=== PATIENT | female | born 1945 | race Caucasian/White ===

== ENCOUNTER 2023-01-18 07:19 | Day surgery (SDC) | payer BC, MEDICAID ==
[~2023-01-18] VITALS: Ht 175.3 cm; Wt 65.2 kg
[~2023-01-18 07:19] MED LIST: ATOR40TA71 PO; LISI20TA28 PO; PANT-47 PO
[2023-01-18] MEDS ORDERED: albumin 25% 100mL bottle x 1 IV PRN (07:40)
[2023-01-18 07:45] VITALS: BP 142/76
[2023-01-18] MEDS ORDERED: ATOR40TA72 PO (07:58)
[2023-01-18] MEDS ORDERED: WARF3TAB56 PO (07:58)
[2023-01-18] MEDS ORDERED: GABA-534 PO (07:58)
[2023-01-18] MEDS ORDERED: CYAN250010 PO (07:58)
[2023-01-18] MEDS ORDERED: OLAP150T PO (07:58)
[2023-01-18] MEDS ORDERED: LIDOcaine 1% 30ml preserv. free vial SQ STA (08:03)
[2023-01-18 08:40] VITALS: BP 138/67
--- NOTE | 2023-01-18 08:57 | NUR ---
Pt DC home at 0845, procedure cancelled due to not enough fluid present to drain or sample. At 0850 Received call from lab pt INR 5.0, relayed results to Deysi DAVIS, acknowledged results and asked to notify pt of results. I phoned pt at 0855 and notified her of INR 5.o results and to follow up with MD who manages warfarin dosing. Pt verbalized understanding, and will call warfarin managing MD.
== END 2023-01-18 08:45 | disposition home or self-care (01) ==
LOC: SSTAY O 07:19
PROVIDERS: ATTEND Radiology Diagnostic Radiology
DX: J90 Pleural effusion, not elsewhere classified (principal); Z53.8 Procedure and treatment not carried out for other reasons; E88.09 Other disorders of plasma-protein metabolism, not elsewhere classified; D50.9 Iron deficiency anemia, unspecified; I09.9 Rheumatic heart disease, unspecified; C48.2 Malignant neoplasm of peritoneum, unspecified; C78.00 Secondary malignant neoplasm of unspecified lung; Z79.899 Other long term (current) drug therapy; Z79.01 Long term (current) use of anticoagulants
CPT/HCPCS: 36415; 76604; 85610

== ENCOUNTER 2023-06-11 10:27 | Emergency (ER) | payer BC ==
[~2023-06-11] VITALS: Ht 172.7 cm; Wt 59.5 kg
[~2023-06-11 10:27] MED LIST changes: -ATOR40TA71 PO; +ATOR40TA72 PO; +CYAN250010 PO; +GABA-535 PO; -LISI20TA28 PO; +OLAP150T PO; -PANT-47 PO; +WARF3TAB56 PO
[2023-06-11 10:35] VITALS: TEMP 97.6
[2023-06-11 11:13] LABS: BASOPHILS # (AUTO) 0.1 X10'3 (0-0.2); BASOPHILS % (AUTO) 0.8 % (0-1); EOSINOPHILS # (AUTO) 0.1 X10'3 (0-0.9); EOSINOPHILS % (AUTO) 1.3 % (0-6); HEMATOCRIT 36.4 % (35.0-45.0); LYMPHOCYTES # (AUTO) 0.8 X10'3 (1.1-4.8); LYMPHOCYTES % (AUTO) 12.2 % (21-51); MEAN CORPUSCULAR HEMOGLOBIN 38.6 PG (27.0-31.0); MEAN CORPUSCULAR VOLUME 116.9 FL (78-98); MEAN PLATELET VOLUME 10.5 FL (7.4-10.4); MONOCYTES # (AUTO) 0.8 X10'3 (0-0.9); MONOCYTES % (AUTO) 12.6 % (2-12); NEUTROPHILS # (AUTO) 4.8 X10'3 (1.8-7.7); NEUTROPHILS % (AUTO) 73.1 % (42-75); RED BLOOD COUNT 3.11 X10'6 (4.20-5.60); RED CELL DISTRIBUTION WIDTH 17.4 % (11.5-14.5); WHITE BLOOD COUNT 6.6 X10'3 (4.5-11.0)
[2023-06-11 11:27] LABS: ALANINE AMINOTRANSFERASE 107 U/L (12-78); ALBUMIN 3.1 G/DL (3.4-5.0); ALBUMIN/GLOBULIN RATIO 0.9 (1.1-1.5); ALKALINE PHOSPHATASE 766 IU/L (46-116); ANION GAP 11 (8-16); ASPARTATE AMINO TRANSFERASE 139 U/L (10-37); BILIRUBIN,TOTAL 1.2 MG/DL (0.1-1.0); BLOOD UREA NITROGEN 16 MG/DL (7-18); BUN/CREATININE RATIO 26.7 (10.0-20.0); CALCIUM 9.4 MG/DL (8.5-10.1); CHLORIDE 106 MMOL/L (99-107); GLUCOSE 119 MG/DL (70-104); LIPASE 558 U/L (73-393); POTASSIUM 3.5 MMOL/L (3.5-5.1); SODIUM 141 MMOL/L (135-145); TOTAL PROTEIN 6.7 G/DL (6.4-8.2); eCRCL 75 ML/MIN; eGFR > 90 ML/MIN
[2023-06-11 11:38] LABS: PLATELET COUNT 97 X10'3 (140-440)
[2023-06-11 11:53] LABS: ANISOCYTOSIS 1+; PLATELET ESTIMATE DECREASED
[2023-06-11 11:54] LABS: POLYCHROMASIA 1+
[2023-06-11 11:55] LABS: STOMATOCYTES 1+; TEAR DROP CELLS FEW
[2023-06-11 14:40] VITALS: BP 127/89; PULSE 108; O2SAT 97
--- NOTE | 2023-06-11 14:41 | NUR ---
pt transported to [facility] by emergency medical dispatcher. Addendum: 06/11/23 at 1441 by GUDELIA assuming care
--- NOTE | 2023-06-11 14:50 | NUR ---
Isidra fernandez in [facility] - 06/11/23 at 1451 by GUDELIA #2 dose 10ml gastrografin admin pt tolerating it well
[2023-06-11 15:54] VITALS: RESP 16
[2023-06-11] MEDS ORDERED: iohexol 300mg/ml 100ml inj. ONE ×2 (16:32→17:04)
--- NOTE | 2023-06-11 18:51 | NUR ---
warm moist compress applied to RUQ/elbow region.
[2023-06-21] MEDS ORDERED: DIPH25CA83 PO (08:10)
[2023-06-21] MEDS ORDERED: IBUP-2417 PO (08:10)
== END 2023-07-07 07:57 | disposition home or self-care (01) ==
LOC: ER 10:28
DX: C79.60 Secondary malignant neoplasm of unspecified ovary (principal); J90 Pleural effusion, not elsewhere classified; J44.9 Chronic obstructive pulmonary disease, unspecified; Z79.899 Other long term (current) drug therapy; Z87.891 Personal history of nicotine dependence
CPT/HCPCS: 36415; 74178; 80053; 83690; 85008; 85025; 99285; J3490; Q9967

== ENCOUNTER 2023-06-14 08:22 | Day surgery (SDC) | payer BC ==
[~2023-06-14] VITALS: Ht 172.7 cm; Wt 59.6 kg
[2023-06-14] MEDS ORDERED: albumin 25% 100mL bottle x 1 IV PRN (08:45)
== END 2023-06-14 09:10 | disposition home or self-care (01) ==
LOC: SSTAY O 08:22
PROVIDERS: ATTEND Radiology Diagnostic Radiology
DX: R18.8 Other ascites (principal); Z53.8 Procedure and treatment not carried out for other reasons; I11.0 Hypertensive heart disease with heart failure; I50.9 Heart failure, unspecified; E78.5 Hyperlipidemia, unspecified; E88.09 Other disorders of plasma-protein metabolism, not elsewhere classified; D50.9 Iron deficiency anemia, unspecified; C48.2 Malignant neoplasm of peritoneum, unspecified; C78.00 Secondary malignant neoplasm of unspecified lung; Z87.891 Personal history of nicotine dependence; Z79.899 Other long term (current) drug therapy; Z79.01 Long term (current) use of anticoagulants
CPT/HCPCS: 76705; A6258

== ENCOUNTER 2023-06-21 07:22 | Day surgery (SDC) | payer BC ==
[~2023-06-21] VITALS: Ht 172.7 cm; Wt 59.4 kg
[2023-06-21 08:05] VITALS: BP 135/99; PULSE 119; RESP 24; TEMP 97.6; O2SAT 96
[2023-06-21] MEDS ORDERED: IBUP-2417 PO (08:10)
[2023-06-21] MEDS ORDERED: DIPH25CA83 PO (08:10)
--- NOTE | 2023-06-21 08:30 | NUR ---
Pt lab draw came back as no results. Lab to come re-draw. Amaury is going to wait until labs are resulted to complete the procedure. Notified Amaury that she looks pretty sick and is very pale and has blue toes/tops of feet.
--- NOTE | 2023-06-21 10:25 | NUR ---
Labs came back as no results. Amaury at the bedside to complete limited US to see if there is fluid. Amaury unable to complete the procedure due to labs, pt looking sickly, HR in the 120s when Amaury at the bedside and blue toes/feet. Pt advised by Amaury to go to the ER. Pt does not want to go at this time.
== END 2023-06-21 10:40 | disposition home or self-care (01) ==
LOC: SSTAY O 07:22
PROVIDERS: ATTEND Radiology Vascular & Interventional Radiology
DX: J90 Pleural effusion, not elsewhere classified (principal); Z53.8 Procedure and treatment not carried out for other reasons; I11.0 Hypertensive heart disease with heart failure; I50.9 Heart failure, unspecified; E78.5 Hyperlipidemia, unspecified; C78.00 Secondary malignant neoplasm of unspecified lung; E88.09 Other disorders of plasma-protein metabolism, not elsewhere classified; D50.9 Iron deficiency anemia, unspecified; Z85.42 Personal history of malignant neoplasm of other parts of uterus; Z87.891 Personal history of nicotine dependence; Z79.899 Other long term (current) drug therapy
CPT/HCPCS: 36415; 76604; 85610